=== PATIENT | male | born 1960 | race Caucasian/White ===

== ENCOUNTER → 2016-10-06 | Outpatient (CLI) | payer OTHER ==
[2016-01-26 13:22] VITALS: BP 157/94
--- NOTE | 2016-10-07 08:11 | RAD ---
HISTORY: Chronic shoulder pain Study: Three views left shoulder Comparison: None Findings: Normal alignment. No acute fracture or dislocation. The soft tissues are unremarkable. There are mi ld degenerative changes of the glenohumeral and acromioclavicular joints. IMPRESSION: 1. Mild degenerative changes of the glenohumeral and acromioclavicular joints without acute abnormal ity. Reported By:
--- NOTE | 2016-10-07 08:12 | RAD ---
HISTORY: Chronic shoulder pain Study: Three views right shoulder Comparison: 03/06/2014 Findings: Normal alignment. No acute fracture or dislocation. The soft tissues are unremarkable. There are ch ronic degenerative changes of the glenohumeral and acromioclavicular joints. IMPRESSION: 1. Stable chronic degenerative changes of the right shoulder without acute abnormality Reported By:
== END ==
LOC: RAD 17:11
PROVIDERS: ATTEND Specialist
DX: M25.512 Pain in left shoulder (principal); M25.511 Pain in right shoulder
CPT/HCPCS: 73030

== ENCOUNTER 2017-09-13 18:02 | Emergency (ER) | payer OTHER ==
[2017-09-13 18:06] VITALS: BMI 36.5
[2017-09-13] MEDS ORDERED: TORADOL 30 MG VIAL IM ONE (18:12)
[2017-09-13] MEDS ORDERED: TORADOL 60 MG VIAL ONE (18:16)
--- NOTE | 2017-09-13 18:56 | RAD ---
Three views of the left foot Indication: Foot pain after fall Findings: There is no fracture or dislocation within the left foot. Lisfranc joint alignment is maint ained. Moderate dependent change of the plantar fascia. No localizing soft tissue swelling. Impression: No acute radiographic abnormality within the left foot. Reported By:
--- NOTE | 2017-09-13 18:59 | RAD ---
Left ankle, three views Indication: Fall with ankle pain Comparison: 12/04/2014 Findings: No acute fracture or malalignment of the left ankle is identified. There are minimal degene rative changes of the tibiotalar joint with small subchondral cyst formation within the medial talar dome. Mild midfoot DJD and mild hindfoot enthesopathy are also noted. There is no appreciable joint e ffusion. Surrounding soft tissues are unremarkable. Impression: No acute radiographic abnormality of the left ankle. Mild degenerative changes, as above. Reported By:
--- NOTE | 2017-09-13 19:13 | DR.EXTPAIN ---
HPI - Time seen Time seen: 19:13 (seen on arrival) - PCP Primary Care Physician: TAYLOR - HPI Comment HPI Comment: inverted left ankle falling about 1 foot just [employer], pt c/o left foot , ankle pain and swelling - Complaint/Symptoms Chief Complaint:: PT. C/O LEFT FOOT PAIN. PT. STATES HE STEPPED ON HIS FOOT WRONG AND HIS TOES GOT TWISTED AROUND. - Source History Provided: Patient - Mode of arrival Mode of Arrival: Wheelchair - Timing Onset of Chief Complaint: 09/13/17 PMH - PMH Past Medical History: Yes (multiple old ortho injury) Past Medical History: Depression, Hypertension Past Medical History Comment: ULCERS Past Surgical History: Yes Surgical History: Ortho Surgery - Family History History of Family Medical Conditions: Yes Family Medical History: Diabetes Mellitus, Cancer, Coronary Artery Disease, Hypertension - Social History Does patient currently use any type of tobacco product: No Have you used tobacco products in the last 12 months: No Type of Tobacco Use: None Does any household member use tobacco: No Alcohol Use: None Do you use any recreational Drugs:: No Lives With: Family Lives Where: Home - infectious screening In the last 2 months have you had wt loss of >10#?: NO Have you had fever, night sweats or hemotysis?: No Have you traveled outside the country in the last 6 months?: No Isolation: Standard ROS - Review of Systems Constitutional: See HPI Eyes: No Symptoms Reported ENTM: No Symptoms Reported Respiratoy: No Symptoms Reported Cardiovascular: No Symptoms Reported Gastrointestinal/Abdominal: No Symptoms Reported Genitourinary: No Symptoms Reported Neurological: No Symptoms Reported Musculoskeletal: No Symptoms Reported, Joint Swelling, Left, Ankle, Foot Integumentary: No Symptoms Reported Hematologic/Lymphatic: No Symptoms Reported Endocrine: No Symptoms Reported Psychiatric: No Symptoms Reported All Other Systems: Reviewed and Negative PE - Vital Signs Vitals: Temperature 98.8 F Pulse Rate 75 Respiratory Rate 18 Blood Pressure [Right Arm] 103/83 Blood Pressure 115/71 O2 Sat by Pulse Oximetry 96 - General Limitations: No Limitations General Appearance: Alert, In No Apparent Distress - Head Head Exam: Normal Inspection - Eyes Eye exam: Normal Appearance - ENT ENT Exam: Normal Exam - Neck Neck Exam: Normal Inspection - Respiratory Respiratory Exam: Normal Lung Sounds Bilat Respiratory Exam: Bilateral Clear to Auscultation - Cardiovascular Cardiovascular Exam: Regular Rate, Normal Heart Sounds - Abdominal Exam Abdominal Exam: Normal Bowel Sounds, Soft. negative: Tenderness - Extremities Extremities Exam: Tenderness, Normal Capillary Refill, Joint Swelling, Other ( left ankle swollen, tender. No palp bony deformity, good cap refill in left foot). negative: Edema ROR - XRAY XRAY Interpreted by: Radiologist XRAY Findings: left foot,ankle both normal - Diagnosis Discharge Problem: Left ankle sprain - Discharge Plan Disposition: HOME, SELF-CARE Condition: Stable Prescriptions: Ketorolac Tromethamine [Toradol Tab] 10 mg PO Q8H PRN #12 tab PRN Reason: Pain - Follow ups/Referrals Follow ups/Referrals: Nasim VAZQUEZ [Primary Care Provider] - 3 days - Instructions
[2017-09-13 19:32] VITALS: BP 157/82
== END 2017-09-13 19:25 | disposition home or self-care (01) ==
LOC: ER 18:14
DX: S93.402A Sprain of unspecified ligament of left ankle, initial encounter (principal); W19.XXXA Unspecified fall, initial encounter; Y92.9 Unspecified place or not applicable
CPT/HCPCS: 73610; 73630; 96372; 99283; J1885

== ENCOUNTER 2017-12-30 19:44 | Inpatient (IN) ==
[2017-12-30] MEDS ORDERED: NS 1000 ML 1,000 ML ONE ×2 (19:57→22:10)
[2017-12-30] MEDS ORDERED: NS 1000 ML 1,000 ML IV ONE ×2 (20:00→20:06)
--- NOTE | 2017-12-30 20:08 | DR.GENAD ---
HPI - PCP Primary Care Physician: TAYLOR - Complaint/Symptoms Chief Complaint Doctors Comments: Patient states he has been having cramping in his left arm an legs for the last 2 hours. states he has been working outside and doing a lot of sweating when the cramps started he almost passed out and rested for a while and was drinking water. He denies tobacco or alcohol usage. States he was having left sided chest pain earlier today but denies SOB, nausea or vomiting. He denies any recent trauma. States he has been taking multiple medicines for nerves, depression and anxiety with oxycontin and a sleeping pill. States he has been having headache and dizziness earlier today but denies syncope. States this is like his usual headache. Chief Complaint:: LEFT ARM CRAMPING, BILATERAL LEG CRAMPING O/S 30 MINS AGO. 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 - Nurses notes reviewed Nurses Notes Review: Yes - Source History Provided: Patient - Mode of Arrival Mode of Arrival: Ambulatory - Timing Onset of Chief Complaint: 12/30/17 Came on: Gradually - Duration Duration: Constant How lon Duration: Hours - Location Location: left arm and leg - Severity Severity: Moderate - Modifying Factors Worsens:: nothing Improves:: nothing PMH - PMH Past Medical History: Yes Past Medical History: Depression, Hypertension Past Medical History Comment: LACTOSE INTOLERANT. CHRONIC BACK PAIN Past Surgical History: Yes Surgical History: Ortho Surgery - Family History History of Family Medical Conditions: Yes Family Medical History: Diabetes Mellitus, Cancer, Coronary Artery Disease, Hypertension - Social History Alcohol Use: None Do you use any recreational Drugs:: No Lives With: Significant Other Lives Where: Home - infectious screening Have you traveled outside the country in the last 6 months?: No Isolation: Standard ROS - Review of Systems Constitutional: No Symptoms Reported, Weakness Eyes: No Symptoms Reported. negative: See HPI, Eye Pain, Blurred Vision, Tearing, Discharge, Photophobia, Diplopia, Other ENTM: No Symptoms Reported, Hearing Loss (right ear) Respiratoy: No Symptoms Reported Cardiovascular: No Symptoms Reported, Chest Pain. negative: See HPI, Edema, Palpitations, Syncope, Cyanosis, Skin Mottling, Other Gastrointestinal/Abdominal: No Symptoms Reported Genitourinary: No Symptoms Reported Neurological: No Symptoms Reported, Anxiety, Depressed, Headache, Dizziness Musculoskeletal: No Symptoms Reported Integumentary: No Symptoms Reported Hematologic/Lymphatic: No Symptoms Reported Endocrine: No Symptoms Reported Psychiatric: No Symptoms Reported, Anxiety, Depression PE - General Limitations: No Limitations General Appearance: Alert, In Distress (moderate) - Head Head Exam: Normal Inspection, Atraumatic, Normocephalic - Eyes Eye exam: Normal Appearance, PERRL, EOMI. negative: Scleral Icterus, Conjunctival Injection, Nystagmus, Miosis, Mydrasis, Periorbital Swelling, Periorbital Tenderness, Other - ENT ENT Exam: Normal Exam, Normal Oropharynx, Normal External Ear Exam, Mucous Membranes Moist, TM's Normal Bilaterally External Ear Exam: Normal External Inspection TM/Canal Exam: Bilateral Normal Nose Exam: Normal Nose Exam Mouth Exam: Normal Inspection Throat Exam: Normal Inspection - Neck Neck Exam: Normal Inspection, Full ROM, Trachea Midline. negative: Tenderness, Meningismus, Lymphadenopathy, Thyromegaly, Other - Chest Chest Inspection: Normal Inspection, Symmetric Chest Wall Rise - Respiratory Respiratory Exam: Normal Lung Sounds Bilat Respiratory Exam: Bilateral Clear to Auscultation - Cardiovascular Cardiovascular Exam: Regular Rate, Normal Rhythm, Normal Heart Sounds. negative : Bradycardia, Tachycardia, Irregular Rhythm, Systolic Murmur, Diastolic Murmur , Rubs, Gallop, Clicks, JVD, +S1, +S2, +S3, +S4, Other - Abdominal Exam Abdominal Exam: Normal Inspection, Normal Bowel Sounds, Soft. negative: Distention, Tenderness, Guarding, Rebound, Rigidity, Dimnished Bowel Sounds, Hyperactive Bowel Sounds, Hypoactive Bowel Sounds, Organomegaly, Trauma, Incision, Ascites, Mass, Bruit, Pulsatile Mass, Hernia, Other Abdominal Tenderness: negative: RUQ, RLQ, LUQ, LLQ, Epigastrium, Suprapubic, Diffuse, Mild, Moderate, Severe, Other - Extremities Extremities Exam: Normal Inspection, Full ROM, Tenderness, Normal Capillary Refill. negative: Edema, Joint Swelling, Calf Tenderness, Other - Back Back Exam: Normal Inspection, Full ROM - Neurologic Neurological Exam: Alert, Oriented X3, CN II-XII Intact, Reflexes Normal. negative: Normal Gait (gait not tested) - Psychiatric Psychiatric Exam: Normal Affect, Normal Mood - Skin Skin Exam: Warm, Dry, Intact, Normal Color - Vital Signs Vitals: Temperature 97.4 F Pulse Rate [Apical] 90 Pulse Rate 106 Respiratory Rate 24 Blood Pressure [Left Arm] 120/59 Blood Pressure [Right Arm] 157/82 Blood Pressure 105/66 O2 Sat by Pulse Oximetry 99 Course - Reevaluation 1st: Improved - Consultation Called: 22:37 (Dr. Lizama called) Call Returned: 23:34 (Dr. Lizama to admid) ROR - Labs Reviewed Laboratory Results Reviewed?: Yes (All labs and x-ray results reviewed and discussed with patient) Result Diagrams: 12/30/17 20:05 12/30/17 20:26 - XRAY XRAY Interpreted by: Radiologist (CT head: No acute intracranial process identified. Right sided mastoid air cell.) XRAY Findings: CXR: No acute cardiopulmonary disease - EKG Rate: 103 [place]: Normal, LAD Rhythm: NSR, ST Block: None ST: Nonsp - Labs Reviewed Laboratory: WBC 16.0 X10^3/uL (3.6-10.0) H 12/30/17 20:05 RBC 5.31 X10^6/uL (4.7-6.0) 12/30/17 20:05 Hgb 15.9 g/dL (13.5-18.0) 12/30/17 20:05 Hct 46.9 % (42.0-54.0) 12/30/17 20:05 MCV 88.2 fL (80.0-100.0) 12/30/17 20:05 MCH 30.0 pg (27.0-34.0) 12/30/17 20:05 MCHC 34.0 g/dL (33.0-35.0) 12/30/17 20:05 RDW 13.3 % (11.6-16.5) 12/30/17 20:05 Plt Count 388 X10^3/uL (150.0-450.0) 12/30/17 20:05 MPV 10.2 fL (7.4-11.0) 12/30/17 20:05 Neut % (Auto) 57.3 % (42.0-75.0) 12/30/17 20:05 Lymph % (Auto) 27.2 % (21.0-51.0) 12/30/17 20:05 [place] % (Auto) 13.9 % (0.0-13.0) H 12/30/17 20:05 Eos % (Auto) 0.7 % (0.9-2.9) L 12/30/17 20:05 Baso % (Auto) 0.9 % (0.2-1.0) 12/30/17 20:05 Neut # (Auto) 9.2 x10^3/uL (2.2-4.8) H 12/30/17 20:05 Lymph # (Auto) 4.4 X10^3/uL (1.3-2.9) H 12/30/17 20:05 [place] # (Auto) 2.2 x10^3/uL (0.3-0.8) H 12/30/17 20:05 Eos # (Auto) 0.1 x10^3/uL (0.0-0.2) 12/30/17 20:05 Baso # (Auto) 0.2 X10^3/uL (0.0-0.1) H 12/30/17 20:05 Absolute Nucleated RBC 0.0 /100WBC 12/30/17 20:05 INR Target Range - 12/30/17 20:26 INR 1.07 (0.8-1.3) 12/30/17 20:26 APTT 29.1 SECONDS (22.9-36.5) 12/30/17 20:26 PTT Comment - 12/30/17 20:26 Sodium 137 mmol/L (136-145) 12/30/17 20:26 Corrected Sodium 138 mmol/L (136-145) 12/30/17 20:26 Potassium 4.3 mmol/L (3.5-5.1) 12/30/17 20:26 Chloride 99 mmol/L (98-107) 12/30/17 20:26 Carbon Dioxide 23.8 mmol/L (21-32) 12/30/17 20:26 BUN 43 mg/dL (7-18) H 12/30/17 20:26 Creatinine 5.65 mg/dL (0.70-1.30) H 12/30/17 20:26 Est GFR (MDRD) Af Amer 13 (>60) L 12/30/17 20:26 Est GFR (MDRD) Non-Af 11 (>60) L 12/30/17 20:26 Glucose 128 mg/dL (65-99) H 12/30/17 20:26 Calcium 9.4 mg/dL (8.5-10.1) 12/30/17 20:26 Corrected Calcium TNP 12/30/17 20:26 Magnesium 2.2 mg/dL (1.7-2.9) 12/30/17 20:26 Total Bilirubin 0.40 mg/dL (0.2-1.0) 12/30/17 20:26 AST 21 Units/L (15-37) 12/30/17 20:26 ALT 26 Units/L (12-78) 12/30/17 20:26 Alkaline Phosphatase 114 Units/L (46-116) 12/30/17 20:26 Creatine Kinase 517 Units/L (39-308) H 12/30/17 20:26 CK-MB (CK-2) 2.7 ng/mL (0-4.0) 12/30/17 20:26 CK/CKMB % Calc 0.5 % (<4) 12/30/17 20:26 Troponin I < 0.02 ng/mL (0-1.5) 12/30/17 20:26 Total Protein 7.9 g/dL (6.4-8.2) 12/30/17 20:26 Albumin 3.9 g/dL (3.4-5.0) 12/30/17 20:26 Globulin 4.0 g/dL (2.5-4.5) 12/30/17 20:26 Albumin/Globulin Ratio 1.0 Ratio (1.1-2.1) L 12/30/17 20:26 - Diagnosis Discharge Problem: Dehydration, Pre-syncope, Hyperglycemia Acute renal failure Qualifiers: Acute renal failure type: unspecified Qualified Code(s): N17.9 - Acute kidney failure, unspecified Hypotension Qualifiers: Hypotension type: other hypotension type Qualified Code(s): I95.89 - Other hypotension Rhabdomyolysis Qualifiers: Encounter type: initial encounter - Discharge Plan Disposition: ADMITTED INPATIENT Condition: Stable - Follow ups/Referrals Follow ups/Referrals: Nasim VAZQUEZ [Primary Care Provider] - 3 days - Instructions
[2017-12-30 20:18] LABS: BASOPHILS # (AUTO) 0.2 X10^3/uL (0.0-0.1); BASOPHILS % (AUTO) 0.9 % (0.2-1.0); EOSINOPHILS # (AUTO) 0.1 x10^3/uL (0.0-0.2); EOSINOPHILS % (AUTO) 0.7 % (0.9-2.9); HEMATOCRIT 46.9 % (42.0-54.0); HEMOGLOBIN 15.9 g/dL (13.5-18.0); LYMPHOCYTES # (AUTO) 4.4 X10^3/uL (1.3-2.9); LYMPHOCYTES % (AUTO) 27.2 % (21.0-51.0); MEAN CORPUSCULAR VOLUME 88.2 fL (80.0-100.0); MEAN PLATELET VOLUME 10.2 fL (7.4-11.0); MONOCYTES # (AUTO) 2.2 x10^3/uL (0.3-0.8); MONOCYTES % (AUTO) 13.9 % (0.0-13.0); NEUTROPHILS # (AUTO) 9.2 x10^3/uL (2.2-4.8); NEUTROPHILS % (AUTO) 57.3 % (42.0-75.0); PLATELET COUNT 388 X10^3/uL (150.0-450.0); RED BLOOD COUNT 5.31 X10^6/uL (4.7-6.0); RED CELL DISTRIBUTION WIDTH 13.3 % (11.6-16.5)
--- NOTE | 2017-12-30 20:27 | RAD ---
HISTORY: Left arm cramping Study: Single-view chest Comparison: 10/07/2014 Findings: The trachea is midline. The cardiac silhouette is unremarkable. The lungs are clear without focal i nfiltrate or effusion. The bony thorax is unremarkable. IMPRESSION: 1. No acute cardiopulmonary disease. Reported By:
[2017-12-30 20:50] LABS: BLOOD UREA NITROGEN 43 mg/dL (7-18); CALCIUM 9.4 mg/dL (8.5-10.1); CARBON DIOXIDE 23.8 mmol/L (21-32); CHLORIDE 99 mmol/L (98-107); COR NA(FOR HYPERGLY) 138 mmol/L (136-145); CREATININE 5.65 mg/dL (0.70-1.30); SODIUM 137 mmol/L (136-145); TROPONIN I < 0.02 ng/mL (0-1.5); eGFR NON BLACK RACES 11 (>60)
--- NOTE | 2017-12-30 21:02 | CT ---
HISTORY: Headache dizziness syncope Study: CT brain without contrast Comparison: None Technique: Multiple axial images of the brain were obtained from the skull base to the vertex without administra tion of IV contrast. Findings: No acute intraparenchymal hemorrhage or mass can be identified. No extra-axial fluid collections are seen. No alteration in the attenuation of the brain parenchyma can be identified to suggest acute o r subacute ischemic change. The ventricular system is symmetric and nondilated. There is a small rig ht left-sided mastoid air cell effusion. IMPRESSION: 1. No acute intracranial process can be identified. 2. Right sided mastoid air cell. Reported By:
[2017-12-30 21:07] LABS: ALANINE AMINOTRANSFERASE 26 Units/L (12-78); ALBUMIN 3.9 g/dL (3.4-5.0); ALKALINE PHOSPHATASE 114 Units/L (46-116); ASPARTATE AMINO TRANSFERASE 21 Units/L (15-37); CKMB % 0.5 % (<4); CREATINE KINASE 517 Units/L (39-308); CREATINE KINASE MB 2.7 ng/mL (0-4.0); MAGNESIUM 2.2 mg/dL (1.7-2.9); TOTAL PROTEIN 7.9 g/dL (6.4-8.2)
[2017-12-30] MEDS ORDERED: HumuLIN R SUBCUT PRN (23:36)
[2017-12-30] MEDS ORDERED: TYLENOL 325 MG TAB PO ONE ×2 (23:52→23:56)
[2017-12-31] MEDS: NS 1000 ML 1,000 ML IV SCH ×4 (00:49→23:20)
[2017-12-31 01:14] LABS: BILIRUBIN,URINE 1+ (NEGATIVE); BLOOD/HEMOGLOBIN,URINE 4+ (NEGATIVE); GLUCOSE, URINE NEGATIVE (NEGATIVE); KETONES,URINE 1+ (NEGATIVE); LEUKOCYTE ESTERASE ,URINE 1+ (NEGATIVE); NITRITES,URINE NEGATIVE (NEGATIVE); PROTEIN,URINE 2+ (NEGATIVE); UROBILINOGEN,URINE 1+ (NORMAL)
[2017-12-31 01:55] LABS: APPEARANCE,URINE CLEAR (CLEAR); BACTERIA,URINE TRACE /HPF (NEGATIVE); COLOR,URINE AMBER (YELLOW); CYSTINE CRYSTALS,URINE FEW /HPF (NEGATIVE); HYALINE CASTS, URINE MODERATE /LPF (NEGATIVE); RENAL EPITHELIAL CELLS,URINE FEW /HPF (NEGATIVE); SQUAMOUS EPITHELIAL CELL,UR FEW /HPF (NEGATIVE)
[2017-12-31 01:56] LABS: MUCUS,URINE FEW /HPF (NEGATIVE)
[2017-12-31 05:58] LABS: BASOPHILS # (AUTO) 0.1 X10^3/uL (0.0-0.1); BASOPHILS % (AUTO) 0.7 % (0.2-1.0); EOSINOPHILS # (AUTO) 0.1 x10^3/uL (0.0-0.2); EOSINOPHILS % (AUTO) 1.2 % (0.9-2.9); HEMATOCRIT 40.7 % (42.0-54.0); HEMOGLOBIN 13.8 g/dL (13.5-18.0); LYMPHOCYTES # (AUTO) 4.2 X10^3/uL (1.3-2.9); LYMPHOCYTES % (AUTO) 37.8 % (21.0-51.0); MEAN CORPUSCULAR HEMOGLOBIN 30.3 pg (27.0-34.0); MEAN CORPUSCULAR HGB CONC 33.9 g/dL (33.0-35.0); MEAN CORPUSCULAR VOLUME 89.4 fL (80.0-100.0); MEAN PLATELET VOLUME 9.8 fL (7.4-11.0); MONOCYTES # (AUTO) 1.4 x10^3/uL (0.3-0.8); MONOCYTES % (AUTO) 12.9 % (0.0-13.0); NEUTROPHILS # (AUTO) 5.3 x10^3/uL (2.2-4.8); NEUTROPHILS % (AUTO) 47.4 % (42.0-75.0); PLATELET COUNT 264 X10^3/uL (150.0-450.0); RED BLOOD COUNT 4.55 X10^6/uL (4.7-6.0); RED CELL DISTRIBUTION WIDTH 13.1 % (11.6-16.5); WHITE BLOOD COUNT 11.2 X10^3/uL (3.6-10.0)
[2017-12-31 06:22] LABS: ALBUMIN 3.2 g/dL (3.4-5.0); CALCIUM 8.4 mg/dL (8.5-10.1); CARBON DIOXIDE 24.9 mmol/L (21-32); CREATININE 3.27 mg/dL (0.70-1.30); TOTAL PROTEIN 6.8 g/dL (6.4-8.2)
[2017-12-31 15:33] VITALS: BMI 36.3
--- NOTE | 2017-12-31 17:31 | DR.H&P ---
H&P - History & Physical for Day of: H&P Date: 12/30/17 - Chief Complaint Chief Complaint: LEFT ARM CRAMPING, BILATERAL ARM CRAMPING. - History of Present Illness History of Present Illness: IS A 57 YEAR OLD PATIENT OF WHO PRESENTED TO THE ER WITH COMPLAINTS OF LEFT ARM CRAMPING AND BILATERAL LEG CRAMPING. PATIENT REPORTS THAT PAIN STARTED APPROXIMATELY 30 MINUTES PRIOR TO ARRIVAL. HE REPORTS THAT HE HAS BEEN OUT WALKING TODAY. HE ALSO REPORTS LEFT SIDED CHEST PAIN EARLIER IN THE DAY. ON ARRIVAL, VITALS WERE 97.4-106-20-95%-105 /66. LABS WERE OBTAINED. ABNORMAL LAB VALUES INCLUDE THE FOLLOWING: WBC 16.0, BUN 43, CREATININE 5.65, GLUCOSE 128, CREATINE KINASE 517. CHEST XRAY IS NEGATIVE FOR ACUTE CARDIOPULMONARY DISEASE. BRAIN CT REPORTS: No acute intracranial process can be identified, Right sided mastoid air cell. EKG REVEALS SINUS TACHYCARDIA WITH HR 103. HE WAS GIVEN A NORMAL SALINE BOLUS X 2 LITERS, THEN NORMAL SALINE AT 125ML/HR. WE ADMITTED PATIENT FOR FURTHER TREATMENT AND EVALUATION. WE PLAN TO FOLLOW UP WITH AM LABS AND CONTINUE TO MONITOR PATIENT. - Past Medical History Past Medical History: Depression, Hypertension - Past Surgical History Surgical History: Ortho Surgery - Family History Family Medical History: Diabetes Mellitus, Cancer, Coronary Artery Disease, Hypertension - Social History Does patient currently use any type of tobacco product: No Have you used tobacco products in the last 12 months: No Type of Tobacco Use: None Alcohol Use: None Drug Use: None - Medications Home Medications: No Known Drug Allergies Allergy (Verified 12/30/17 19:48) CONTINUE taking the following medications bupropion HCl 1 tab PO BID 12/31/17 [History] duloxetine 1 tab PO DAILY 12/31/17 [History] gabapentin 1 tab PO TID PRN 12/31/17 [History] lisinopril [Zestril] 1 tab PO DAILY 12/31/17 [History] oxycodone-acetaminophen [Percocet] 1 tab PO TID PRN 12/31/17 [History] pramipexole 1 tab PO DAILY 12/31/17 [History] tizanidine 1 tab PO TID PRN 12/31/17 [History] zolpidem 1 tab PO DAILY 12/31/17 [History] - Review of Systems Constitutional: Sweats, Weakness Eyes: No Symptoms Reported ENT: No Symptoms Reported Respiratory: No Symptoms Reported Cardiovascular: Chest Pain Gastrointestinal: No Symptoms Reported Genitourinary: No Symptoms Reported Musculoskeletal: Arm Pain, Leg Pain Neurological: Weakness - Physical Exam Vital Signs: Temperature 97.6 F Pulse Rate [Apical] 84 Pulse Rate 106 Respiratory Rate 20 Blood Pressure [Left Arm] 134/70 Blood Pressure [Right Arm] 157/82 Blood Pressure 105/66 O2 Sat by Pulse Oximetry 98 Oriented: Normal Eyes: Normal Ear: Normal Nose: Normal Throat: Normal Respiratory: Clear Throughout Cardiovascular: Tachycardia. negative: S3, S4, Murmur : Normal Auscultation: Bowel Sounds: Normal Palpation: Normal Tenderness: Normal Skin: Decreased Turgur Musculoskeletal: Left, Arm, Leg, Tender Psychiatric: Normal Mood Description: Calm Affect: Normal Speech Pattern: Clear - Assessment/Plan (1) Acute renal failure Qualifiers: Acute renal failure type: unspecified Qualified Code(s): N17.9 - Acute kidney failure, unspecified Status: Acute Plan: NORMAL SALINE AT 125ML/HR, CONTINUE TO MONITOR (2) Dehydration Status: Acute (3) Rhabdomyolysis Qualifiers: Encounter type: initial encounter Status: Acute - Allergies Allergies/Adverse Reactions: Allergies Allergy/AdvReac Type Severity Reaction Status Date / Time No Known Drug Allergies Allergy Verified 12/30/17 19:48
[2017-12-31 19:17] LABS: CKMB % 0.4 % (<4); CREATINE KINASE 610 Units/L (39-308); CREATINE KINASE MB 2.2 ng/mL (0-4.0); TROPONIN I < 0.02 ng/mL (0-1.5)
[2017-12-31] MEDS: NORCO 5/325 MG TAB PO PRN (19:26)
[2018-01-01] MEDS: NORCO 5/325 MG TAB PO PRN ×3 (05:01→20:44)
[2018-01-01 06:26] LABS: BASOPHILS # (AUTO) 0.1 X10^3/uL (0.0-0.1); BASOPHILS % (AUTO) 1.3 % (0.2-1.0); EOSINOPHILS # (AUTO) 0.2 x10^3/uL (0.0-0.2); EOSINOPHILS % (AUTO) 2.4 % (0.9-2.9); HEMATOCRIT 39.2 % (42.0-54.0); HEMOGLOBIN 13.4 g/dL (13.5-18.0); LYMPHOCYTES # (AUTO) 3.2 X10^3/uL (1.3-2.9); LYMPHOCYTES % (AUTO) 41.9 % (21.0-51.0); MEAN CORPUSCULAR HEMOGLOBIN 30.2 pg (27.0-34.0); MEAN CORPUSCULAR HGB CONC 34.2 g/dL (33.0-35.0); MEAN CORPUSCULAR VOLUME 88.3 fL (80.0-100.0); MEAN PLATELET VOLUME 9.8 fL (7.4-11.0); MONOCYTES # (AUTO) 0.8 x10^3/uL (0.3-0.8); MONOCYTES % (AUTO) 10.3 % (0.0-13.0); NEUTROPHILS # (AUTO) 3.3 x10^3/uL (2.2-4.8); NEUTROPHILS % (AUTO) 44.1 % (42.0-75.0); PLATELET COUNT 225 X10^3/uL (150.0-450.0); RED BLOOD COUNT 4.44 X10^6/uL (4.7-6.0); RED CELL DISTRIBUTION WIDTH 13.3 % (11.6-16.5); WHITE BLOOD COUNT 7.5 X10^3/uL (3.6-10.0)
[2018-01-01 07:21] LABS: ALANINE AMINOTRANSFERASE 31 Units/L (12-78); ALBUMIN 3.1 g/dL (3.4-5.0); ALKALINE PHOSPHATASE 93 Units/L (46-116); ASPARTATE AMINO TRANSFERASE 24 Units/L (15-37); BLOOD UREA NITROGEN 21 mg/dL (7-18); CALCIUM 8.7 mg/dL (8.5-10.1); CARBON DIOXIDE 24.8 mmol/L (21-32); CHLORIDE 107 mmol/L (98-107); CKMB % 0.4 % (<4); COR CA(FOR HYPOALB) 9.4 mg/dL (8.5-10.1); CREATINE KINASE 453 Units/L (39-308); CREATININE 1.06 mg/dL (0.70-1.30); SODIUM 138 mmol/L (136-145); TOTAL PROTEIN 6.7 g/dL (6.4-8.2); TROPONIN I < 0.02 ng/mL (0-1.5); eGFR NON BLACK RACES > 60 (>60)
[2018-01-01] MEDS ORDERED: ZESTRIL TAB 20 MG ONE (11:13)
[2018-01-01] MEDS: NS 1000 ML 1,000 ML IV SCH ×4 (11:25→23:31)
[2018-01-01] MEDS: ZESTRIL TAB 20 MG PO SCH (11:25)
[2018-01-01] MEDS: ASPIRIN EC 81 MG PO SCH (13:44)
--- NOTE | 2018-01-01 16:16 | PCM.PROG ---
Progress Note - Progress Note for Day of Date: 12/31/17 - Subjective Subjective: WAS ADMITTED FOR ACUTE RENAL FAILURE, DEHYDRATION, AND RHABDOMYOLYSIS. TODAY, HE IS ALERT AND ORIENED, LYING IN BED ON MORNING ROUNDS. HE CONTINUES WITH COMPLAINTS OF BILATERAL LEG PAIN AND GENERALIZED WEAKNESS. ON EXAMINATION, HEART IS REGULAR IN RATE AND RHYTHM. BILATERAL LUNGS ARE NOTED WITH DIMINISHED LUNG SOUNDS THROUGHOUT. ABDOMEN IS ROUND, SOFT, AND NON-TENDER WITH NORMAL BOWEL SOUNDS NOTED IN ALL QUADRANTS. WEAKNESS NOTED TO BILATERAL LOWER EXTREMITIES. SLIGHTLY IMPROVED SINCE YESTERDAY. HIS VITALS THIS MORNING ARE 97.5-67-18-99%-111/61. LABS WERE OBTAINED. ABNORMAL LAB VALUES INCLUDE THE FOLLOWING: WBC 11.2, RBC 4.55, HCT 40.7, BUN 42, CREATININE 3.27, GLUCOSE 118, CALCIUM 8.4, ALBUMIN 3.2. CREATINE KINASE HAS INCREASED FROM 517 TO 610 THIS MORNING. TODAY, WE WILL CONTINUE WITH IV HYDRATION. OTHERWISE, WE WILL FOLLOW UP WITH AM LABS AND CONTINUE TO MONITOR PATIENT. - Past Medical Family Social History Past Med/Fam/Surg Hx: No changes since H&P Allergies: Allergies No Known Drug Allergies Allergy (Verified 12/30/17 19:48) - Review of Systems ROS: No change since H&P - Vital Signs and I&O's Vital Signs: Temperature 97.6 F Pulse Rate [Apical] 78 Pulse Rate 106 Respiratory Rate 20 Blood Pressure [Left Arm] 176/92 Blood Pressure [Right Arm] 157/82 Blood Pressure 105/66 O2 Sat by Pulse Oximetry 98 Intake and Output: Intake & Output 12/30/17 12/31/17 01/01/18 01/02/18 11:59 11:59 11:59 11:59 Intake Total 920 / 920 3440 / 3440 3543 / 3543 Output Total 2225 / 2225 700 / 700 Balance 920 / 920 1215 / 1215 2843 / 2843 - Physical Exam Oriented: Normal Eyes: Normal Ear: Normal Nose: Normal Throat: Normal Respiratory: Diminished Cardiovascular: Normal. negative: S3, S4, Murmur : Normal Auscultation: Bowel Sounds: Normal Palpation: Normal Tenderness: Normal Skin: Normal Musculoskeletal: Left, Shoulder, Arm, Leg, Tender Psychiatric: Normal Mood Description: Calm Affect: Normal Speech Pattern: Clear, Appropriate - Laboratory and Diagnostics Result Diagrams: 01/01/18 06:11 01/01/18 06:11 Labs: Laboratory WBC 7.5 X10^3/uL (3.6-10.0) 01/01/18 06:11 RBC 4.44 X10^6/uL (4.7-6.0) L 01/01/18 06:11 Hgb 13.4 g/dL (13.5-18.0) L 01/01/18 06:11 Hct 39.2 % (42.0-54.0) L 01/01/18 06:11 MCV 88.3 fL (80.0-100.0) 01/01/18 06:11 MCH 30.2 pg (27.0-34.0) 01/01/18 06:11 MCHC 34.2 g/dL (33.0-35.0) 01/01/18 06:11 RDW 13.3 % (11.6-16.5) 01/01/18 06:11 Plt Count 225 X10^3/uL (150.0-450.0) 01/01/18 06:11 MPV 9.8 fL (7.4-11.0) 01/01/18 06:11 Neut % (Auto) 44.1 % (42.0-75.0) 01/01/18 06:11 Lymph % (Auto) 41.9 % (21.0-51.0) 01/01/18 06:11 [place] % (Auto) 10.3 % (0.0-13.0) 01/01/18 06:11 Eos % (Auto) 2.4 % (0.9-2.9) 01/01/18 06:11 Baso % (Auto) 1.3 % (0.2-1.0) H 01/01/18 06:11 Neut # (Auto) 3.3 x10^3/uL (2.2-4.8) 01/01/18 06:11 Lymph # (Auto) 3.2 X10^3/uL (1.3-2.9) H 01/01/18 06:11 [place] # (Auto) 0.8 x10^3/uL (0.3-0.8) 01/01/18 06:11 Eos # (Auto) 0.2 x10^3/uL (0.0-0.2) 01/01/18 06:11 Baso # (Auto) 0.1 X10^3/uL (0.0-0.1) 01/01/18 06:11 Absolute Nucleated RBC 0.0 /100WBC 01/01/18 06:11 INR Target Range - 12/30/17 20:26 INR 1.07 (0.8-1.3) 12/30/17 20:26 APTT 29.1 SECONDS (22.9-36.5) 12/30/17 20:26 PTT Comment - 12/30/17 20:26 Sodium 138 mmol/L (136-145) 01/01/18 06:11 Corrected Sodium TNP 01/01/18 06:11 Potassium 4.8 mmol/L (3.5-5.1) 01/01/18 06:11 Chloride 107 mmol/L (98-107) 01/01/18 06:11 Carbon Dioxide 24.8 mmol/L (21-32) 01/01/18 06:11 BUN 21 mg/dL (7-18) H 01/01/18 06:11 Creatinine 1.06 mg/dL (0.70-1.30) 01/01/18 06:11 Est GFR (MDRD) Af Amer > 60 (>60) 01/01/18 06:11 Est GFR (MDRD) Non-Af > 60 (>60) 01/01/18 06:11 Glucose 96 mg/dL (65-99) 01/01/18 06:11 POC Glucose (mg/dL) 96 mg/dL (65-99) 12/31/17 06:06 Hemoglobin A1c 5.8 % 12/31/17 05:10 Calcium 8.7 mg/dL (8.5-10.1) 01/01/18 06:11 Corrected Calcium 9.4 mg/dL (8.5-10.1) 01/01/18 06:11 Magnesium 2.2 mg/dL (1.7-2.9) 12/30/17 20:26 Total Bilirubin 0.60 mg/dL (0.2-1.0) 01/01/18 06:11 AST 24 Units/L (15-37) 01/01/18 06:11 ALT 31 Units/L (12-78) 06/11/18 06:11 Alkaline Phosphatase 93 Units/L (46-116) 01/01/18 06:11 Creatine Kinase 453 Units/L (39-308) H 01/01/18 06:11 CK-MB (CK-2) 2.0 ng/mL (0-4.0) 01/01/18 06:11 CK/CKMB % Calc 0.4 % (<4) 01/01/18 06:11 Troponin I < 0.02 ng/mL (0-1.5) 01/01/18 06:11 Total Protein 6.7 g/dL (6.4-8.2) 01/01/18 06:11 Albumin 3.1 g/dL (3.4-5.0) L 01/01/18 06:11 Globulin 3.6 g/dL (2.5-4.5) 01/01/18 06:11 Albumin/Globulin Ratio 0.9 Ratio (1.1-2.1) L 01/01/18 06:11 Specimen Type Clean catch urine 12/31/17 00:45 Urine Color Swati (YELLOW) 12/31/17 00:45 Urine Appearance Clear (CLEAR) 12/31/17 00:45 Urine pH 5.0 (5.0 - 8.0) 12/31/17 00:45 Ur Specific [place] 1.020 (1.000-1.030) 12/31/17 00:45 Urine Protein 2+ (NEGATIVE) 12/31/17 00:45 Urine Glucose (UA) Negative (NEGATIVE) 12/31/17 00:45 Urine Ketones 1+ (NEGATIVE) 12/31/17 00:45 Urine Occult Blood 4+ (NEGATIVE) 12/31/17 00:45 Urine Nitrite Negative (NEGATIVE) 12/31/17 00:45 Urine Bilirubin 1+ (NEGATIVE) 12/31/17 00:45 Urine Urobilinogen 1+ (NORMAL) 12/31/17 00:45 Ur Leukocyte Esterase 1+ (NEGATIVE) 12/31/17 00:45 Urine RBC 3-5 /HPF (NONE SEEN) 12/31/17 00:45 Urine WBC 0-2 /HPF (NONE SEEN) 12/31/17 00:45 Ur Squamous Epith Cells Few /HPF (NEGATIVE) 12/31/17 00:45 Ur Renal Epithelial Cell Few /HPF (NEGATIVE) 12/31/17 00:45 Cystine Crystals Few /HPF (NEGATIVE) 12/31/17 00:45 Urine Bacteria Trace /HPF (NEGATIVE) 12/31/17 00:45 Hyaline Casts Moderate /LPF (NEGATIVE) 12/31/17 00:45 Urine Mucus Few /HPF (NEGATIVE) 12/31/17 00:45 Ur Culture Indicated? No/not indicated 12/31/17 00:45 - Plan (1) Acute renal failure Status: Acute Qualifiers: Acute renal failure type: unspecified Qualified Code(s): N17.9 - Acute kidney failure, unspecified Plan: NORMAL SALINE AT 125ML/HR, CONTINUE TO MONITOR (2) Dehydration Status: Acute (3) Rhabdomyolysis Status: Acute Qualifiers: Encounter type: initial encounter
[2018-01-01] MEDS: NEURONTIN TAB 600 MG PO PRN (20:40)
[2018-01-02] MEDS: NEURONTIN TAB 600 MG PO PRN (05:04)
[2018-01-02] MEDS: NORCO 5/325 MG TAB PO PRN (05:04)
[2018-01-02 07:04] LABS: BLOOD UREA NITROGEN 13 mg/dL (7-18); CALCIUM 8.7 mg/dL (8.5-10.1); CARBON DIOXIDE 26.7 mmol/L (21-32); CHLORIDE 108 mmol/L (98-107); CREATININE 0.88 mg/dL (0.70-1.30); SODIUM 141 mmol/L (136-145); eGFR NON BLACK RACES > 60 (>60)
[2018-01-02] MEDS ORDERED: ZESTRIL TAB 20 MG ONE (07:29)
[2018-01-02] MEDS: ASPIRIN EC 81 MG PO SCH (09:18)
[2018-01-02] MEDS: ZESTRIL TAB 20 MG PO SCH (09:18)
[2018-01-02] MEDS: NS 1000 ML 1,000 ML IV SCH (10:35)
[2018-01-02 11:51] VITALS: BP 187/91
== END 2018-01-02 11:40 | disposition home or self-care (01) | DRG 683 ==
LOC: ER 19:44 → MED/SURG 23:42
PROVIDERS: ADMIT Internal Medicine; ATTEND Internal Medicine
DX: N17.8 Other acute kidney failure; M62.82 Rhabdomyolysis; R42 Dizziness and giddiness; R51 Headache; E86.0 Dehydration; I95.89 Other hypotension; R94.4 Abnormal results of kidney function studies
CPT/HCPCS: 36415; 70450; 71010; 71045; 80048; 80053; 81001; 82550; 82553; 83036; 83735; 84484; 85025; 85610; 85730; 93005; 93010; 94760; 96365; 96367; 99284; A4216; A4222; J3490; J7030

== ENCOUNTER 2019-01-24 13:34 | Observation (INO) ==
[2019-01-24] MEDS ORDERED: ASPIRIN PO ONE (13:35)
--- NOTE | 2019-01-24 13:42 | DR.CP ---
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 Family history of cardiac disease both parents of heart disease. Patient stopped smoking at least 10 years ago. PMH. HT. DM, HTN. Complaint Chief Complaint Doctor Comments: Chest pain PMH PMH Past Medical History: Depression and Hypertension Past Surgical History: Yes Surgical History: Ortho Surgery Family History Family Medical History: Diabetes Mellitus, Cancer, Coronary Artery Disease and Hypertension Social History Do you use any recreational Drugs:: No ROS Review of Systems Constitutional: No Symptoms Reported Eyes: No Symptoms Reported ENTM: No Symptoms Reported and Nose Congestion Respiratoy: No Symptoms Reported Cardiovascular: No Symptoms Reported Gastrointestinal/Abdominal: No Symptoms Reported Genitourinary: No Symptoms Reported Neurological: No Symptoms Reported Musculoskeletal: No Symptoms Reported Integumentary: No Symptoms Reported, See HPI and Change in Hair/Nails Endocrine: No Symptoms Reported Psychiatric: No Symptoms Reported All Other Systems: Reviewed and Negative PE Vitals Vitals: Temperature 97.7 F Pulse Rate [Left Radial] 99 Pulse Rate 130 Respiratory Rate 20 Blood Pressure [Left Arm] 135/84 Blood Pressure [Right Arm] 157/82 Blood Pressure 144/88 O2 Sat by Pulse Oximetry 92 General Limitations: No Limitations General Appearance: Alert, In No Apparent Distress and Anxious Head Head Exam: Normal Inspection, Atraumatic and Normocephalic Eyes Eye exam: Normal Appearance, PERRL and EOMI ENT ENT Exam: Normal Exam, Normal Oropharynx and Normal External Ear Exam Chest Chest Inspection: Normal Inspection and Symmetric Chest Wall Rise Respiratory Respiratory Exam: Normal Lung Sounds Bilat Respiratory Exam: Bilateral: Clear to Auscultation Cardiovascular Cardiovascular Exam: Regular Rate and Normal Rhythm Pulse: Normal and Radial Edema: Normal Abdominal Exam Abdominal Exam: Normal Inspection, Normal Bowel Sounds and Soft Back Back Exam: Normal Inspection and Full ROM Psychiatric Psychiatric Exam: Normal Affect and Normal Mood Skin Skin Exam: Warm, Dry and Intact COURSE Treatment Treatment: Chest pain protocol; chest pain improved Reevaluation 1st: Improved Consultation Called: 14:50 Consultation Comments: Dr. Lizama agreed to admit patient to his service for chest pain protocol ROR Labs Reviewed Laboratory Results Reviewed?: Yes Result Diagrams: 01/24/19 13:48 01/24/19 13:48 Laboratory: WBC 6.4 X10^3/uL (3.6-10.0) 01/24/19 13:48 RBC 4.78 X10^6/uL (4.7-6.0) 01/24/19 13:48 Hgb 14.7 g/dL (13.5-18.0) 01/24/19 13:48 Hct 42.9 % (42.0-54.0) 01/24/19 13:48 MCV 89.7 fL (80.0-100.0) 01/24/19 13:48 MCH 30.9 pg (27.0-34.0) 01/24/19 13:48 MCHC 34.4 g/dL (33.0-35.0) 01/24/19 13:48 RDW 13.2 % (11.6-16.5) 01/24/19 13:48 Plt Count 238 X10^3/uL (150.0-450.0) 01/24/19 13:48 MPV 9.2 fL (7.4-11.0) 01/24/19 13:48 Neut % (Auto) 41.0 % (42.0-75.0) L 01/24/19 13:48 Lymph % (Auto) 44.4 % (21.0-51.0) 01/24/19 13:48 [place] % (Auto) 11.7 % (0.0-13.0) 01/24/19 13:48 Eos % (Auto) 2.0 % (0.9-2.9) 01/24/19 13:48 Baso % (Auto) 0.9 % (0.2-1.0) 01/24/19 13:48 Neut # (Auto) 2.6 x10^3/uL (2.2-4.8) 01/24/19 13:48 Lymph # (Auto) 2.8 X10^3/uL (1.3-2.9) 01/24/19 13:48 [place] # (Auto) 0.7 x10^3/uL (0.3-0.8) 01/24/19 13:48 Eos # (Auto) 0.1 x10^3/uL (0.0-0.2) 01/24/19 13:48 Baso # (Auto) 0.1 X10^3/uL (0.0-0.1) 01/24/19 13:48 Absolute Nucleated RBC 0.1 /100WBC 01/24/19 13:48 INR Target Range - 01/24/19 13:48 INR 1.05 (0.8-1.3) 01/24/19 13:48 APTT 29.3 SECONDS (22.9-36.5) 01/24/19 13:48 PTT Comment - 01/24/19 13:48 Sodium 139 mmol/L (136-145) 01/24/19 13:48 Corrected Sodium 140 mmol/L (136-145) 01/24/19 13:48 Potassium 3.6 mmol/L (3.5-5.1) 01/24/19 13:48 Chloride 105 mmol/L (98-107) 01/24/19 13:48 Carbon Dioxide 26.3 mmol/L (21-32) 01/24/19 13:48 BUN 16 mg/dL (7-18) 01/24/19 13:48 Creatinine 1.07 mg/dL (0.70-1.30) 01/24/19 13:48 Est GFR (MDRD) Af Amer > 60 (>60) 01/24/19 13:48 Est GFR (MDRD) Non-Af > 60 (>60) 01/24/19 13:48 Glucose 143 mg/dL (65-99) H 01/24/19 13:48 Calcium 9.6 mg/dL (8.5-10.1) 01/24/19 13:48 Corrected Calcium TNP 01/24/19 13:48 Magnesium 1.7 mg/dL (1.7-2.9) 01/24/19 13:48 Total Bilirubin 0.40 mg/dL (0.2-1.0) 01/24/19 13:48 AST 40 Units/L (15-37) H 01/24/19 13:48 ALT 77 Units/L (12-78) 01/24/19 13:48 Alkaline Phosphatase 115 Units/L (46-116) 01/24/19 13:48 Creatine Kinase 142 Units/L (39-308) 01/24/19 13:48 CK-MB (CK-2) 1.8 ng/mL (0-4.0) 01/24/19 13:48 CK/CKMB % Calc 1.3 % (<4) 01/24/19 13:48 Troponin I < 0.02 ng/mL (0-1.5) 01/24/19 13:48 Total Protein 7.6 g/dL (6.4-8.2) 01/24/19 13:48 Albumin 3.6 g/dL (3.4-5.0) 01/24/19 13:48 Globulin 4.0 g/dL (2.5-4.5) 01/24/19 13:48 Albumin/Globulin Ratio 0.9 Ratio (1.1-2.1) L 01/24/19 13:48 Other Results Comments: Chest; The cardiac silhouette is unremarkable. Aortic ectasis is noted. There worsening interstitial densities seen throughout the lung [place] which can be seen with acute bronchitis or mild interstitial edema. This needs clinical context. The remaining lung [place] are clear without focal infiltrate or effusion. The bony thorax is unremarkable. XRAY XRAY Interpreted by: Radiologist Opioid Opioid Risk Tool Total: 0 Total Score Risk Category: Low Risk Copyright: Snajeev GRIFFITH predicting aberrant behaviors Diagnosis Discharge Problem: Aortic ectasia Chest pain Qualifiers: Chest pain type: other chest pain Qualified Code(s): R07.89 - Other chest pain Instructions Forms: Excuse From Work
[2019-01-24] MEDS: NITROSTAT SL PRN ×2 (13:45→13:56)
[2019-01-24 13:57] LABS: BASOPHILS # (AUTO) 0.1 X10^3/uL (0.0-0.1); BASOPHILS % (AUTO) 0.9 % (0.2-1.0); EOSINOPHILS # (AUTO) 0.1 x10^3/uL (0.0-0.2); HEMATOCRIT 42.9 % (42.0-54.0); HEMOGLOBIN 14.7 g/dL (13.5-18.0); LYMPHOCYTES # (AUTO) 2.8 X10^3/uL (1.3-2.9); LYMPHOCYTES % (AUTO) 44.4 % (21.0-51.0); MEAN CORPUSCULAR HEMOGLOBIN 30.9 pg (27.0-34.0); MEAN CORPUSCULAR HGB CONC 34.4 g/dL (33.0-35.0); MEAN CORPUSCULAR VOLUME 89.7 fL (80.0-100.0); MEAN PLATELET VOLUME 9.2 fL (7.4-11.0); MONOCYTES # (AUTO) 0.7 x10^3/uL (0.3-0.8); MONOCYTES % (AUTO) 11.7 % (0.0-13.0); NEUTROPHILS # (AUTO) 2.6 x10^3/uL (2.2-4.8); PLATELET COUNT 238 X10^3/uL (150.0-450.0); RED BLOOD COUNT 4.78 X10^6/uL (4.7-6.0); RED CELL DISTRIBUTION WIDTH 13.2 % (11.6-16.5); WHITE BLOOD COUNT 6.4 X10^3/uL (3.6-10.0)
--- NOTE | 2019-01-24 13:58 | RAD ---
HISTORY: Chest pain Study: Single-view chest. Comparison: Chest radiograph dated 01/15/2018. Findings: The trachea is midline. The cardiac silhouette is unremarkable. Aortic ectasia is noted. There worsening interstitial densities seen throughout the lung [place] which can be seen with acute bronchitis or mild interstitial edema. This needs clinical context. The remaining lung [place] are clear without focal infiltrate or effusion. The bony thorax is unremarkable. IMPRESSION: Aortic ectasia with worsening interstitial disease, as discussed in detail above. Reported By:
[2019-01-24 14:11] LABS: BLOOD UREA NITROGEN 16 mg/dL (7-18); CALCIUM 9.6 mg/dL (8.5-10.1); CARBON DIOXIDE 26.3 mmol/L (21-32); CHLORIDE 105 mmol/L (98-107); COR NA(FOR HYPERGLY) 140 mmol/L (136-145); CREATININE 1.07 mg/dL (0.70-1.30); SODIUM 139 mmol/L (136-145); TROPONIN I < 0.02 ng/mL (0-1.5); eGFR NON BLACK RACES > 60 (>60)
[2019-01-24 14:16] LABS: ALANINE AMINOTRANSFERASE 77 Units/L (12-78); ALBUMIN 3.6 g/dL (3.4-5.0); ALKALINE PHOSPHATASE 115 Units/L (46-116); ASPARTATE AMINO TRANSFERASE 40 Units/L (15-37); CKMB % 1.3 % (<4); CREATINE KINASE 142 Units/L (39-308); CREATINE KINASE MB 1.8 ng/mL (0-4.0); MAGNESIUM 1.7 mg/dL (1.7-2.9); TOTAL PROTEIN 7.6 g/dL (6.4-8.2)
[2019-01-24] MEDS ORDERED: PATIENT'S HOME MEDICATION (Oxycodone-Acetaminophen [Percocet] 1 TAB) PO PRN (15:11)
[2019-01-24 16:09] VITALS: BMI 38.4
[2019-01-24] MEDS ORDERED: MORPHINE SULFATE INJ 2 MG INJ ONE (16:13)
[2019-01-24] MEDS: MORPHINE SULFATE INJ 2 MG INJ IVP PRN (16:40)
[2019-01-24] MEDS ORDERED: POTASSIUM CHLORIDE LIQ 20 MEQ UDC PO PRN (17:00)
[2019-01-24] MEDS ORDERED: POTASSIUM CHL 60 MEQ/NS 0.45% 500 ML IV PRN (17:00)
[2019-01-24] MEDS ORDERED: K-RIDER 10 MEQ/NS 100 ML 10 MEQ/100 ML BAG IV PRN (17:00)
[2019-01-24] MEDS ORDERED: MICRO K EXTEN CAP 10 MEQ PO PRN (17:00)
[2019-01-24] MEDS ORDERED: KLOR-CON PO PRN (17:00)
[2019-01-24] MEDS ORDERED: POTASSIUM CHL 40 MEQ/NS 0.45% 500 ML IV PRN (17:00)
[2019-01-24] MEDS: MAGNESIUM SULFATE 1 GRAM/100 mL PREMIX 1 GM/100 ML BAG IV PRN ×2 (18:30→20:09)
[2019-01-24] MEDS ORDERED: NS 250 ML IV 250 ML ONE (18:35)
[2019-01-24] MEDS: K-DUR TAB 20 MEQ PO PRN (18:45)
[2019-01-24] MEDS: ROCEPHIN VIAL 1 GRAM IVP SCH (20:02)
[2019-01-24] MEDS: WELLBUTRIN XL 150 MG (DAILY) PO SCH (20:03)
[2019-01-24] MEDS: ROXICODONE TAB 5 MG PO PRN (20:14)
[2019-01-24] MEDS: PERCOCET TAB 5/325 MG PO PRN (20:15)
[2019-01-24] MEDS: DUONEB 0.5 MG/3 MG NEB SCH (20:35)
[2019-01-24 20:44] LABS: CKMB % 1.4 % (<4); CREATINE KINASE 122 Units/L (39-308); CREATINE KINASE MB 1.7 ng/mL (0-4.0); TROPONIN I < 0.02 ng/mL (0-1.5)
[2019-01-24] MEDS: NEURONTIN CAP 400 MG PO SCH (21:43)
[2019-01-25 05:10] LABS: BASOPHILS # (AUTO) 0.1 X10^3/uL (0.0-0.1); BASOPHILS % (AUTO) 0.8 % (0.2-1.0); EOSINOPHILS # (AUTO) 0.2 x10^3/uL (0.0-0.2); EOSINOPHILS % (AUTO) 3.1 % (0.9-2.9); HEMATOCRIT 40.2 % (42.0-54.0); HEMOGLOBIN 13.5 g/dL (13.5-18.0); LYMPHOCYTES # (AUTO) 2.6 X10^3/uL (1.3-2.9); LYMPHOCYTES % (AUTO) 38.7 % (21.0-51.0); MEAN CORPUSCULAR HEMOGLOBIN 30.6 pg (27.0-34.0); MEAN CORPUSCULAR HGB CONC 33.7 g/dL (33.0-35.0); MEAN CORPUSCULAR VOLUME 90.8 fL (80.0-100.0); MEAN PLATELET VOLUME 9.7 fL (7.4-11.0); MONOCYTES # (AUTO) 0.9 x10^3/uL (0.3-0.8); MONOCYTES % (AUTO) 13.2 % (0.0-13.0); NEUTROPHILS % (AUTO) 44.2 % (42.0-75.0); PLATELET COUNT 209 X10^3/uL (150.0-450.0); RED BLOOD COUNT 4.43 X10^6/uL (4.7-6.0); RED CELL DISTRIBUTION WIDTH 13.4 % (11.6-16.5); WHITE BLOOD COUNT 6.7 X10^3/uL (3.6-10.0)
[2019-01-25 05:17] LABS: ALANINE AMINOTRANSFERASE 62 Units/L (12-78); ALBUMIN 3.1 g/dL (3.4-5.0); ALKALINE PHOSPHATASE 99 Units/L (46-116); ASPARTATE AMINO TRANSFERASE 29 Units/L (15-37); BLOOD UREA NITROGEN 15 mg/dL (7-18); CALCIUM 8.7 mg/dL (8.5-10.1); CARBON DIOXIDE 27.4 mmol/L (21-32); CHLORIDE 106 mmol/L (98-107); CHOL/HDL RATIO 5.8 (0.0-5.0); CHOLESTEROL 162 mg/dL (0-200); COR CA(FOR HYPOALB) 9.4 mg/dL (8.5-10.1); CREATININE 0.86 mg/dL (0.70-1.30); HDL CHOLESTEROL 28 mg/dL (40-60); SODIUM 140 mmol/L (136-145); TOTAL PROTEIN 6.9 g/dL (6.4-8.2); TRIGLYCERIDES 119 mg/dL (0-150); eGFR NON BLACK RACES > 60 (>60)
[2019-01-25] MEDS: NEURONTIN CAP 400 MG PO SCH ×3 (06:06→21:06)
[2019-01-25] MEDS: PERCOCET TAB 5/325 MG PO PRN ×3 (06:21→21:07)
[2019-01-25] MEDS: ROXICODONE TAB 5 MG PO PRN ×2 (06:23→21:06)
--- NOTE | 2019-01-25 06:28 | RAD ---
History: Cough Exam: Portable chest Comparison: 01/15/2018 Technique: A portable AP chest was obtained Findings: The heart is borderline enlarged. The pulmonary vessels are prominent centrally which is more prominent. No consolidation or effusion is seen. There are mild chronic interstitial changes throughout. IMPRESSION: Stable mild cardiomegaly and mild central pulmonary congestion or pulmonary artery hypertension which is more prominent . No infiltrate or effusion seen. Reported By:
[2019-01-25] MEDS: ROCEPHIN VIAL 1 GRAM IVP SCH (08:10)
[2019-01-25] MEDS: WELLBUTRIN XL 150 MG (DAILY) PO SCH ×2 (08:10→21:06)
[2019-01-25] MEDS: ZANAFLEX PO PRN (08:10)
[2019-01-25] MEDS: MIRAPEX TAB 1 MG PO SCH (08:10)
[2019-01-25] MEDS: ZESTRIL TAB 10 MG PO SCH (08:10)
[2019-01-25] MEDS: DUONEB 0.5 MG/3 MG NEB SCH ×4 (08:50→20:44)
[2019-01-25] MEDS ORDERED: AMBIEN PO SCH (09:00)
[2019-01-25] MEDS ORDERED: CYMBALTA PO SCH (09:00)
[2019-01-25] MEDS: MORPHINE SULFATE INJ 2 MG INJ IVP PRN (17:28)
--- NOTE | 2019-01-25 19:22 | DR.H&P ---
H&P - History & Physical for Day of: H&P Date: 01/24/19 - Chief Complaint Chief Complaint: CHEST PAIN - History of Present Illness History of Present Illness: IS A 58 YEAR OLD PATIENT OF . HE PRESENTED TO THE ER WITH COMPLAINTS OF CHEST PAIN. IT IS DESCRIBED MID- STERNAL AND RADIATES TO THE LEFT SHOULDER. HE RATES PAIN 8/10. HE ALSO REPORTS COUGH AND SHORTNESS OF BREATH. HE REPORTS A FAMILY HISTORY OF CARDIAC DISEASE. Angie Beltre HAS A HISTORY OF DIABETES AND HTN. ON ARRIVAL, VITALS WERE 98.0-130-18-94%-144/88. LABS WERE OBTAINED. GLUCOSE 143, AST 40, OTHERWISE, LABS ARE WITHIN NORMAL LIMITS. CARDIAC ENZYMES WITHIN NORMAL LIMITS. EKG REVEALED: SINUS TACHYCARDIA WITH HR 132. A CHEST XRAY WAS OBTAINED AND REVEALED: The trachea is midline. The cardiac silhouette is unremarkable. Aortic ectasia is noted. There worsening interstitial densities seen throughout the lung [place] which can be seen with acute bronchitis or mild interstitial edema. This needs clinical context. The remaining lung okee[place] are clear without focal infiltrate or effusion. The bony thorax is unremarkable. HE WAS GIVEN ASPIRIN 325MG PO X 1 DOSE IN THE ER. WE ADMITTED PATIENT FOR FURTHER EVALUATION AND TREATMENT OF CHEST PAIN RULE OUT ACUTE [place] AND ACUTE BRONCHITIS. HE WAS STARTED ON RESPIRATORY TREATMENTS AND ROCEPHIN 1G IV DAILY. WE WILL OBTAIN SERIAL CARDIAC ENZYMES AND EKGS. OTHERWISE, WE PLAN TO FOLLOW UP WITH AM LABS AND CHEST XRAY AND CONTINUE TO MONITOR. - Past Medical History Past Medical History: Hypertension, Depression - Past Surgical History Surgical History: Ortho Surgery - Family History Family Medical History: Diabetes Mellitus, Cancer, Coronary Artery Disease, Hypertension - Social History Does patient currently use any type of tobacco product: No Have you used tobacco products in the last 12 months: No Type of Tobacco Use: Cigarettes How many years tobacco product used: 40 Does any household member use tobacco: No Alcohol Use: None Drug Use: Prescription Drugs Prescription drug monitoring program results: PDMP reviewed and no concerns identified - Medications Home Medications: DAIRY PRODUCTS Allergy (Uncoded 01/24/19 17:29) CONTINUE taking the following medications gabapentin [Neurontin] 800 mg PO TID 01/24/19 [History] - Review of Systems Constitutional: No Symptoms Reported Eyes: No Symptoms Reported ENT: No Symptoms Reported Respiratory: No Symptoms Reported, Cough, Shortness of Breath Cardiovascular: Chest Pain Gastrointestinal: No Symptoms Reported Genitourinary: No Symptoms Reported Musculoskeletal: No Symptoms Reported Skin: No Symptoms Reported Neurological: Weakness - Physical Exam Vital Signs: Temperature 98.1 F Pulse Rate [Left Radial] 80 Pulse Rate 68 Respiratory Rate 20 Blood Pressure [Left Arm] 130/75 Blood Pressure [Right Arm] 139/74 Blood Pressure 144/88 O2 Sat by Pulse Oximetry 97 Oriented: Normal Eyes: Normal Ear: Normal Nose: Normal Throat: Normal Respiratory: Diminished Throughout Cardiovascular: Tachycardia : Normal Auscultation: Bowel Sounds: Normal Palpation: Normal Tenderness: Normal Skin: Normal Musculoskeletal: Normal Psychiatric: Normal Mood Description: Calm Affect: Normal Speech Pattern: Clear - Assessment/Plan (1) Chest pain Qualifiers: Chest pain type: unspecified Qualified Code(s): R07.9 - Chest pain, unspecified Status: Acute Plan: SERIAL CARDIAC ENZYMES AND EKGS, CONTINUE TO MONITOR (2) Acute bronchitis Qualifiers: Bronchitis organism: unspecified organism Qualified Code(s): J20.9 - Acute bronchitis, unspecified Status: Acute Plan: IV ROCEPHIN, DUONEBS, SUPPLEMENTAL OXYGEN, CONTINUE TO MONITOR (3) Aortic ectasia Status: Acute - Allergies Allergies/Adverse Reactions: Allergies Allergy/AdvReac Type Severity Reaction Status Date / Time DAIRY PRODUCTS Allergy Uncoded 01/24/19 17:29
[2019-01-25 20:59] LABS: CKMB % 1.1 % (<4); CREATINE KINASE 133 Units/L (39-308); CREATINE KINASE MB 1.4 ng/mL (0-4.0); TROPONIN I < 0.02 ng/mL (0-1.5)
[2019-01-26 05:23] LABS: BASOPHILS % (AUTO) 0.6 % (0.2-1.0); EOSINOPHILS # (AUTO) 0.2 x10^3/uL (0.0-0.2); EOSINOPHILS % (AUTO) 2.9 % (0.9-2.9); HEMATOCRIT 39.5 % (42.0-54.0); HEMOGLOBIN 13.5 g/dL (13.5-18.0); LYMPHOCYTES # (AUTO) 2.3 X10^3/uL (1.3-2.9); LYMPHOCYTES % (AUTO) 38.8 % (21.0-51.0); MEAN CORPUSCULAR HEMOGLOBIN 31.1 pg (27.0-34.0); MEAN CORPUSCULAR HGB CONC 34.2 g/dL (33.0-35.0); MEAN CORPUSCULAR VOLUME 90.7 fL (80.0-100.0); MEAN PLATELET VOLUME 9.7 fL (7.4-11.0); MONOCYTES # (AUTO) 0.7 x10^3/uL (0.3-0.8); MONOCYTES % (AUTO) 12.4 % (0.0-13.0); NEUTROPHILS # (AUTO) 2.7 x10^3/uL (2.2-4.8); NEUTROPHILS % (AUTO) 45.3 % (42.0-75.0); PLATELET COUNT 219 X10^3/uL (150.0-450.0); RED BLOOD COUNT 4.36 X10^6/uL (4.7-6.0)
[2019-01-26 05:41] LABS: ALANINE AMINOTRANSFERASE 59 Units/L (12-78); ALBUMIN 3.1 g/dL (3.4-5.0); ALKALINE PHOSPHATASE 100 Units/L (46-116); ASPARTATE AMINO TRANSFERASE 27 Units/L (15-37); BLOOD UREA NITROGEN 12 mg/dL (7-18); CALCIUM 8.9 mg/dL (8.5-10.1); CARBON DIOXIDE 26.3 mmol/L (21-32); CHLORIDE 106 mmol/L (98-107); COR CA(FOR HYPOALB) 9.6 mg/dL (8.5-10.1); COR NA(FOR HYPERGLY) 140 mmol/L (136-145); CREATININE 0.85 mg/dL (0.70-1.30); SODIUM 140 mmol/L (136-145); TOTAL PROTEIN 6.6 g/dL (6.4-8.2); eGFR NON BLACK RACES > 60 (>60)
[2019-01-26] MEDS: NEURONTIN CAP 400 MG PO SCH ×3 (06:09→21:13)
[2019-01-26] MEDS: ZANAFLEX PO PRN (06:10)
[2019-01-26] MEDS: K-DUR TAB 20 MEQ PO PRN (06:11)
--- NOTE | 2019-01-26 08:16 | RAD ---
Examination: Portable AP chest History: Bronchitis Comparison 01/25/2019 Findings: Transverse heart size is now within the normal range. The lungs and pleural spaces are clear. There is no evidence for pulmonary edema, pneumonia or pleural effusion. Impression: No active abnormality demonstrated. Reported By:
[2019-01-26] MEDS: ZESTRIL TAB 10 MG PO SCH (08:19)
[2019-01-26] MEDS: WELLBUTRIN XL 150 MG (DAILY) PO SCH (08:20)
[2019-01-26] MEDS: MIRAPEX TAB 1 MG PO SCH (08:20)
[2019-01-26] MEDS: ROCEPHIN VIAL 1 GRAM IVP SCH (08:20)
[2019-01-26] MEDS: ROXICODONE TAB 5 MG PO PRN ×2 (08:20→20:16)
[2019-01-26] MEDS: PERCOCET TAB 5/325 MG PO PRN ×2 (08:22→20:17)
[2019-01-26] MEDS: DUONEB 0.5 MG/3 MG NEB SCH ×4 (08:43→20:26)
[2019-01-26] MEDS ORDERED: MAALOX or MYLANTA PO PRN (11:00)
[2019-01-26] MEDS ORDERED: MAALOX or MYLANTA ONE (11:04)
[2019-01-26] MEDS: MAGNESIUM SULFATE 1 GRAM/100 mL PREMIX 1 GM/100 ML BAG IV PRN ×2 (14:57→16:20)
--- NOTE | 2019-01-26 20:40 | PCM.PROG ---
Progress Note - Progress Note for Day of Date of Exam: 01/25/19 - Subjective Subjective: WAS ADMITTED FOR CHEST PAIN, RULE OUT ACUTE CT AND ACUTE BRONCHITIS. TODAY, HE IS ALERT AND ORIENED, LYING IN BED ON MORNING ROUNDS. HE CONTINUES WITH SHORTNESS OF BREATH TODAY. HE DENIES CHEST PAIN TODAY. ON EXAMINATION, HEART IS REGULAR IN RATE AND RHYTHM. BILATERA LUNGS ARE NOTED WITH DIMINISHED LUNG SOUNDS THROUGHOUT. ABDOMEN IS ROUND, SOFT, AND NON-TENDER WITH NORMAL BOWEL SOUNDS NOTED IN ALL QUADRANTS. HIS VITALS THIS MORNING ARE: 97.9-56-18-95%-139/74. LABS WERE OBTAINED. ABNORMAL LAB VALUES INCLUDE THE FOLLOWING: RBC 4.43, HCT 40.2, GLUCOSE 108, ALBUMIN 3.1, LDL 110, HDL 28. CARDIAC ENZYMES HAVE BEEN WITHIN NORMAL LIMITS. NO CHANGES NOTED TO EKGs. WE OBTAINED A CHEST XRAY TODAY. IT REVEALED: Stable mild cardiomegaly and mild central pulmonary congestion or pulmonary artery hypertension which is more prominent. No infiltrate or effusion seen. HE IS CURRENTLY RECEIVING ROCEPHIN 1G IV DAILY, RESPIRATORY TX, AND HIS HOME MEDICATIONS WERE RESUMED. WE WILL CONTINUE WITH CURRENT PLAN OF CARE TODAY. OTHERWISE, WE PLAN TO FOLLOW UP WITH AM LABS AND CONTINUE TO MONITOR. - Past Medical Family Social History Past Med/Fam/Surg Hx: No changes since H&P Allergies: Allergies DAIRY PRODUCTS Allergy (Uncoded 01/24/19 17:29) - Review of Systems ROS: No change since H&P - Vital Signs and I&O's Vital Signs: Temperature 98.3 F Pulse Rate [Left Radial] 70 Pulse Rate 96 Respiratory Rate 17 Blood Pressure [Left Arm] 141/74 Blood Pressure [Right Arm] 139/74 Blood Pressure 144/88 O2 Sat by Pulse Oximetry 96 Intake and Output: Intake & Output 01/24/19 01/25/19 01/26/19 01/27/19 11:59 11:59 11:59 11:59 Intake Total 610 / 610 2760 / 2760 1640 / 1640 Balance 610 / 610 2760 / 2760 1640 / 1640 - Physical Exam Oriented: Normal Eyes: Normal Ear: Normal Nose: Normal Throat: Normal Cardiovascular: Normal. negative: S3, S4, Murmur : Normal Auscultation: Bowel Sounds: Normal Palpation: Normal Tenderness: Normal Skin: Normal Musculoskeletal: Normal Psychiatric: Normal Mood Description: Calm Affect: Normal Speech Pattern: Clear, Appropriate - Laboratory and Diagnostics Result Diagrams: 01/26/19 04:15 01/26/19 04:15 Labs: 01/24/19 19:27 Blood Blood Culture - Preliminary 01/24/19 19:21 Blood Blood Culture - Preliminary Laboratory WBC 6.0 X10^3/uL (3.6-10.0) 01/26/19 04:15 RBC 4.36 X10^6/uL (4.7-6.0) L 01/26/19 04:15 Hgb 13.5 g/dL (13.5-18.0) 01/26/19 04:15 Hct 39.5 % (42.0-54.0) L 01/26/19 04:15 MCV 90.7 fL (80.0-100.0) 01/26/19 04:15 MCH 31.1 pg (27.0-34.0) 01/26/19 04:15 MCHC 34.2 g/dL (33.0-35.0) 01/26/19 04:15 RDW 13.0 % (11.6-16.5) 01/26/19 04:15 Plt Count 219 X10^3/uL (150.0-450.0) 01/26/19 04:15 MPV 9.7 fL (7.4-11.0) 01/26/19 04:15 Neut % (Auto) 45.3 % (42.0-75.0) 01/26/19 04:15 Lymph % (Auto) 38.8 % (21.0-51.0) 01/26/19 04:15 [place] % (Auto) 12.4 % (0.0-13.0) 01/26/19 04:15 Eos % (Auto) 2.9 % (0.9-2.9) 01/26/19 04:15 Baso % (Auto) 0.6 % (0.2-1.0) 01/26/19 04:15 Neut # (Auto) 2.7 x10^3/uL (2.2-4.8) 01/26/19 04:15 Lymph # (Auto) 2.3 X10^3/uL (1.3-2.9) 01/26/19 04:15 [place] # (Auto) 0.7 x10^3/uL (0.3-0.8) 01/26/19 04:15 Eos # (Auto) 0.2 x10^3/uL (0.0-0.2) 01/26/19 04:15 Baso # (Auto) 0.0 X10^3/uL (0.0-0.1) 01/26/19 04:15 Absolute Nucleated RBC 0.1 /100WBC 01/26/19 04:15 INR Target Range - 01/24/19 13:48 INR 1.05 (0.8-1.3) 01/24/19 13:48 APTT 29.3 SECONDS (22.9-36.5) 01/24/19 13:48 PTT Comment - 01/24/19 13:48 Sodium 140 mmol/L (136-145) 01/26/19 04:15 Corrected Sodium 140 mmol/L (136-145) 01/26/19 04:15 Potassium 3.7 mmol/L (3.5-5.1) 01/26/19 04:15 Chloride 106 mmol/L (98-107) 01/26/19 04:15 Carbon Dioxide 26.3 mmol/L (21-32) 01/26/19 04:15 BUN 12 mg/dL (7-18) 01/26/19 04:15 Creatinine 0.85 mg/dL (0.70-1.30) 01/26/19 04:15 Est GFR (MDRD) Af Amer > 60 (>60) 01/26/19 04:15 Est GFR (MDRD) Non-Af > 60 (>60) 01/26/19 04:15 Glucose 116 mg/dL (65-99) H 01/26/19 04:15 Calcium 8.9 mg/dL (8.5-10.1) 01/26/19 04:15 Corrected Calcium 9.6 mg/dL (8.5-10.1) 01/26/19 04:15 Magnesium 1.9 mg/dL (1.7-2.9) 01/26/19 04:15 Total Bilirubin 0.20 mg/dL (0.2-1.0) 01/26/19 04:15 AST 27 Units/L (15-37) 01/26/19 04:15 ALT 59 Units/L (12-78) 01/26/19 04:15 Alkaline Phosphatase 100 Units/L (46-116) 01/26/19 04:15 Creatine Kinase 133 Units/L (39-308) 01/25/19 20:24 CK-MB (CK-2) 1.4 ng/mL (0-4.0) 01/25/19 20:24 CK/CKMB % Calc 1.1 % (<4) 01/25/19 20:24 Troponin I < 0.02 ng/mL (0-1.5) 01/25/19 20:24 Total Protein 6.6 g/dL (6.4-8.2) 01/26/19 04:15 Albumin 3.1 g/dL (3.4-5.0) L 01/26/19 04:15 Globulin 3.5 g/dL (2.5-4.5) 01/26/19 04:15 Albumin/Globulin Ratio 0.9 Ratio (1.1-2.1) L 01/26/19 04:15 Triglycerides 119 mg/dL (0-150) 01/25/19 04:45 Cholesterol 162 mg/dL (0-200) 01/25/19 04:45 LDL Cholesterol, Calc 110 mg/dL (0-100) H 01/25/19 04:45 HDL Cholesterol 28 mg/dL (40-60) L 01/25/19 04:45 Cholesterol/HDL Ratio 5.8 (0.0-5.0) H 01/25/19 04:45 - Plan (1) Chest pain Status: Acute Qualifiers: Chest pain type: unspecified Qualified Code(s): R07.9 - Chest pain, unspecified Plan: SERIAL CARDIAC ENZYMES AND EKGS, CONTINUE TO MONITOR (2) Acute bronchitis Status: Acute Qualifiers: Bronchitis organism: unspecified organism Qualified Code(s): J20.9 - Acute bronchitis, unspecified Plan: IV ROCEPHIN, DUONEBS, SUPPLEMENTAL OXYGEN, CONTINUE TO MONITOR (3) Aortic ectasia Status: Acute
[2019-01-26 21:27] LABS: CREATINE KINASE 145 Units/L (39-308); CREATINE KINASE MB 1.4 ng/mL (0-4.0); TROPONIN I < 0.02 ng/mL (0-1.5)
[2019-01-27] MEDS: NEURONTIN CAP 400 MG PO SCH (05:28)
[2019-01-27 05:35] LABS: BASOPHILS # (AUTO) 0.1 X10^3/uL (0.0-0.1); BASOPHILS % (AUTO) 0.8 % (0.2-1.0); EOSINOPHILS # (AUTO) 0.3 x10^3/uL (0.0-0.2); EOSINOPHILS % (AUTO) 3.8 % (0.9-2.9); HEMATOCRIT 39.3 % (42.0-54.0); HEMOGLOBIN 13.3 g/dL (13.5-18.0); LYMPHOCYTES # (AUTO) 2.7 X10^3/uL (1.3-2.9); LYMPHOCYTES % (AUTO) 40.2 % (21.0-51.0); MEAN CORPUSCULAR HEMOGLOBIN 30.6 pg (27.0-34.0); MEAN CORPUSCULAR HGB CONC 33.8 g/dL (33.0-35.0); MEAN CORPUSCULAR VOLUME 90.7 fL (80.0-100.0); MONOCYTES # (AUTO) 0.8 x10^3/uL (0.3-0.8); NEUTROPHILS # (AUTO) 2.9 x10^3/uL (2.2-4.8); NEUTROPHILS % (AUTO) 43.2 % (42.0-75.0); PLATELET COUNT 219 X10^3/uL (150.0-450.0); RED BLOOD COUNT 4.33 X10^6/uL (4.7-6.0); RED CELL DISTRIBUTION WIDTH 13.1 % (11.6-16.5); WHITE BLOOD COUNT 6.7 X10^3/uL (3.6-10.0)
[2019-01-27 05:41] LABS: ALANINE AMINOTRANSFERASE 53 Units/L (12-78); ALBUMIN 3.1 g/dL (3.4-5.0); ALKALINE PHOSPHATASE 103 Units/L (46-116); ASPARTATE AMINO TRANSFERASE 23 Units/L (15-37); BLOOD UREA NITROGEN 12 mg/dL (7-18); CARBON DIOXIDE 28.9 mmol/L (21-32); CHLORIDE 106 mmol/L (98-107); COR CA(FOR HYPOALB) 9.7 mg/dL (8.5-10.1); CREATININE 0.82 mg/dL (0.70-1.30); SODIUM 142 mmol/L (136-145); TOTAL PROTEIN 6.5 g/dL (6.4-8.2); eGFR NON BLACK RACES > 60 (>60)
--- NOTE | 2019-01-27 06:59 | RAD ---
HISTORY: Shortness of breath Study: Single view chest Comparison: 01/26/2019 Findings: Single portable view is submitted. Lung volumes are reduced. No infiltrate, effusion or pneumothorax identified. The cardiac and mediastinal contours are within normal limits. The soft tissues are unremarkable. IMPRESSION: 1. No acute cardiopulmonary abnormality. Reported By:
[2019-01-27] MEDS: DUONEB 0.5 MG/3 MG NEB SCH (08:33)
[2019-01-27] MEDS: ZESTRIL TAB 10 MG PO SCH (09:30)
[2019-01-27] MEDS: ROCEPHIN VIAL 1 GRAM IVP SCH (09:30)
[2019-01-27] MEDS: MIRAPEX TAB 1 MG PO SCH (10:00)
[2019-01-27 11:32] VITALS: BP 144/79
--- NOTE | 2019-01-27 21:12 | PCM.PROG ---
Progress Note - Progress Note for Day of Date of Exam: 01/26/19 - Subjective Subjective: WAS ADMITTED FOR CHEST PAIN, RULE OUT ACUTE [place] AND ACUTE BRONCHITIS. TODAY, HE IS ALERT AND ORIENED, LYING IN BED ON MORNING ROUNDS. HE CONTINUES WITH SHORTNESS OF BREATH TODAY WELL A NON-PRODUCTIVE COUGH. HE DENIES CHEST PAIN TODAY. ON EXAMINATION, HEART IS REGULAR IN RATE AND RHYTHM. BILATERAL LUNGS ARE NOTED WITH DIMINISHED LUNG SOUNDS THROUGHOUT. ABDOMEN IS ROUND, SOFT, AND NON-TENDER WITH NORMAL BOWEL SOUNDS NOTED IN ALL QUADRANTS. HIS VITALS THIS MORNING ARE: 98.5-60-20-99%-145/75. LABS WERE OBTAINED. ABNORMAL LAB VALUES INCLUDE THE FOLLOWING: RBC 4.36, HCT 39.5, GLUCOSE 116, ALBUMIN 3.1. BLOOD CULTURES ARE PENDING. CARDIAC ENZYMES HAVE BEEN WITHIN NORMAL LIMITS. NO CHANGES NOTED TO EKGs. WE OBTAINED A CHEST XRAY TODAY. IT REVEALED: NO ACTIVE ABNORMALITY DEMONSTRATED. HE IS CURRENTLY RECEIVING ROCEPHIN 1G IV DAILY, RESPIRATORY TX, AND HIS HOME MEDICATIONS WERE RESUMED. WE WILL CONTINUE WITH CURRENT PLAN OF CARE TODAY. OTHERWISE, WE PLAN TO FOLLOW UP WITH AM LABS AND CONTINUE TO MONITOR. - Past Medical Family Social History Past Med/Fam/Surg Hx: No changes since H&P Allergies: Allergies DAIRY PRODUCTS Allergy (Uncoded 01/24/19 17:29) - Review of Systems ROS: No change since H&P - Vital Signs and I&O's Vital Signs: Temperature 97.5 F Pulse Rate [Left Radial] 63 Pulse Rate 73 Respiratory Rate 18 Blood Pressure [Left Arm] 144/79 Blood Pressure [Right Arm] 189/91 Blood Pressure 144/88 O2 Sat by Pulse Oximetry 98 Intake and Output: Intake & Output 01/25/19 01/26/19 01/27/19 01/28/19 11:59 11:59 11:59 11:59 Intake Total 610 / 610 2760 / 2760 3290 / 3290 Balance 610 / 610 2760 / 2760 3290 / 3290 - Physical Exam Oriented: Normal Eyes: Normal Ear: Normal Nose: Normal Throat: Normal Cardiovascular: Normal. negative: S3, S4, Murmur : Normal Auscultation: Bowel Sounds: Normal Tenderness: Normal Skin: Normal Musculoskeletal: Normal Psychiatric: Normal Mood Description: Calm Affect: Normal Speech Pattern: Clear, Appropriate - Laboratory and Diagnostics Result Diagrams: 01/27/19 04:13 01/27/19 04:13 Labs: 01/24/19 19:27 Blood Blood Culture - Preliminary 01/24/19 19:21 Blood Blood Culture - Preliminary Laboratory WBC 6.7 X10^3/uL (3.6-10.0) 01/27/19 04:13 RBC 4.33 X10^6/uL (4.7-6.0) L 01/27/19 04:13 Hgb 13.3 g/dL (13.5-18.0) L 01/27/19 04:13 Hct 39.3 % (42.0-54.0) L 01/27/19 04:13 MCV 90.7 fL (80.0-100.0) 01/27/19 04:13 MCH 30.6 pg (27.0-34.0) 01/27/19 04:13 MCHC 33.8 g/dL (33.0-35.0) 01/27/19 04:13 RDW 13.1 % (11.6-16.5) 01/27/19 04:13 Plt Count 219 X10^3/uL (150.0-450.0) 01/27/19 04:13 MPV 10.0 fL (7.4-11.0) 01/27/19 04:13 Neut % (Auto) 43.2 % (42.0-75.0) 01/27/19 04:13 Lymph % (Auto) 40.2 % (21.0-51.0) 01/27/19 04:13 [place] % (Auto) 12.0 % (0.0-13.0) 01/27/19 04:13 Eos % (Auto) 3.8 % (0.9-2.9) H 01/27/19 04:13 Baso % (Auto) 0.8 % (0.2-1.0) 01/27/19 04:13 Neut # (Auto) 2.9 x10^3/uL (2.2-4.8) 01/27/19 04:13 Lymph # (Auto) 2.7 X10^3/uL (1.3-2.9) 01/27/19 04:13 [place] # (Auto) 0.8 x10^3/uL (0.3-0.8) 01/27/19 04:13 Eos # (Auto) 0.3 x10^3/uL (0.0-0.2) H 01/27/19 04:13 Baso # (Auto) 0.1 X10^3/uL (0.0-0.1) 01/27/19 04:13 Absolute Nucleated RBC 0.1 /100WBC 01/27/19 04:13 INR Target Range - 01/24/19 13:48 INR 1.05 (0.8-1.3) 01/24/19 13:48 APTT 29.3 SECONDS (22.9-36.5) 01/24/19 13:48 PTT Comment - 01/24/19 13:48 Sodium 142 mmol/L (136-145) 01/27/19 04:13 Corrected Sodium TNP 01/27/19 04:13 Potassium 4.2 mmol/L (3.5-5.1) 01/27/19 04:13 Chloride 106 mmol/L (98-107) 01/27/19 04:13 Carbon Dioxide 28.9 mmol/L (21-32) 01/27/19 04:13 BUN 12 mg/dL (7-18) 01/27/19 04:13 Creatinine 0.82 mg/dL (0.70-1.30) 01/27/19 04:13 Est GFR (MDRD) Af Amer > 60 (>60) 01/27/19 04:13 Est GFR (MDRD) Non-Af > 60 (>60) 01/27/19 04:13 Glucose 100 mg/dL (65-99) H 01/27/19 04:13 Calcium 9.0 mg/dL (8.5-10.1) 01/27/19 04:13 Corrected Calcium 9.7 mg/dL (8.5-10.1) 01/27/19 04:13 Magnesium 2.0 mg/dL (1.7-2.9) 01/27/19 04:13 Total Bilirubin 0.20 mg/dL (0.2-1.0) 01/27/19 04:13 AST 23 Units/L (15-37) 01/27/19 04:13 ALT 53 Units/L (12-78) 01/27/19 04:13 Alkaline Phosphatase 103 Units/L (46-116) 01/27/19 04:13 Creatine Kinase 145 Units/L (39-308) 01/26/19 20:30 CK-MB (CK-2) 1.4 ng/mL (0-4.0) 01/26/19 20:30 CK/CKMB % Calc 1.0 % (<4) 01/26/19 20:30 Troponin I < 0.02 ng/mL (0-1.5) 01/26/19 20:30 Total Protein 6.5 g/dL (6.4-8.2) 01/27/19 04:13 Albumin 3.1 g/dL (3.4-5.0) L 01/27/19 04:13 Globulin 3.4 g/dL (2.5-4.5) 01/27/19 04:13 Albumin/Globulin Ratio 0.9 Ratio (1.1-2.1) L 01/27/19 04:13 Triglycerides 119 mg/dL (0-150) 01/25/19 04:45 Cholesterol 162 mg/dL (0-200) 01/25/19 04:45 LDL Cholesterol, Calc 110 mg/dL (0-100) H 01/25/19 04:45 HDL Cholesterol 28 mg/dL (40-60) L 01/25/19 04:45 Cholesterol/HDL Ratio 5.8 (0.0-5.0) H 01/25/19 04:45 - Plan (1) Chest pain Status: Acute Qualifiers: Chest pain type: unspecified Qualified Code(s): R07.9 - Chest pain, unspecified Plan: SERIAL CARDIAC ENZYMES AND EKGS, CONTINUE TO MONITOR (2) Acute bronchitis Status: Acute Qualifiers: Bronchitis organism: unspecified organism Qualified Code(s): J20.9 - Acute bronchitis, unspecified Plan: IV ROCEPHIN, DUONEBS, SUPPLEMENTAL OXYGEN, CONTINUE TO MONITOR (3) Aortic ectasia Status: Acute
== END 2019-01-27 10:40 | disposition home or self-care (01) ==
LOC: ER 13:34 → MED/SURG 13:34
PROVIDERS: ADMIT Internal Medicine; ATTEND Internal Medicine
DX: R00.0 Tachycardia, unspecified; J20.8 Acute bronchitis due to other specified organisms; I77.819 Aortic ectasia, unspecified site; I10 Essential (primary) hypertension; E11.65 Type 2 diabetes mellitus with hyperglycemia; R07.89 Other chest pain
CPT/HCPCS: 36415; 71010; 71045; 80053; 80061; 82550; 82553; 83735; 84484; 85025; 85610; 85730; 87040; 93005; 94640; 94760; 96365; 96374; 99284; A4216; A4222; S0106; G0378; J0696; J2270; J3475; J7620